=== PATIENT | female | born 1945 ===

== ENCOUNTER 2020-08-07 21:49 | Emergency (ER) | payer MEDICARE, OTHER ==
[~2020-08-07] VITALS: Ht 157.5 cm; Wt 65.2 kg
[2020-08-07 21:50] VITALS: BP 133/60
[2020-08-07] MEDS ORDERED: ONDANSETRON 2MG/ML, 2ML IVPush ONE (22:30)
[2020-08-07] MEDS ORDERED: MORPHINE SULFATE 4 MG/ML, 1ML IVPush PRN (22:30)
[2020-08-07] MEDS ORDERED: ONDANSETRON 2MG/ML, 2ML ONE (22:38)
[2020-08-07] MEDS ORDERED: MORPHINE SULFATE 4 MG/ML, 1ML ONE (22:38)
[2020-08-07 22:57] LABS: BASOPHILS # (AUTO) 0.02 x10^3/uL (0-0.1); BASOPHILS % (AUTO) 0 % (0-1); EOSINOPHILS # (AUTO) 0.13 x10^3/uL (0-0.4); EOSINOPHILS % (AUTO) 1 % (1-7); LYMPHOCYTES # (AUTO) 2.01 x10^3/uL (1-3.4); LYMPHOCYTES % (AUTO) 20 % (22-44); MD NO; MEAN CORPUSCULAR HEMOGLOBIN 30.4 pg (27.0-34.8); MEAN CORPUSCULAR HGB CONC 32.2 g/dL (32.4-35.8); MEAN PLATELET VOLUME 8.3 fL (7.4-10.4); MONOCYTES % (AUTO) 5 % (2-9); NEUTROPHILS # (AUTO) 7.34 x10^3/uL (1.8-6.8); NEUTROPHILS % (AUTO) 73 % (42-75); PLATELET COUNT 205 x10^3/uL (130-400); RED BLOOD COUNT 4.24 x10^6/uL (3.82-5.3); RED CELL DISTRIBUTION WIDTH 14.5 % (9.6-15.2)
[2020-08-07 23:05] LABS: ALBUMIN 3.4 g/dL (3.4-5.0); ANION GAP 7 mmol/L (5-15); CALCIUM 9.6 mg/dL (8.5-10.1); CHLORIDE 109 mmol/L (98-107)
== END 2020-08-08 00:23 | disposition home or self-care (01) ==
LOC: ED 22:37
DX: S50.01XA Contusion of right elbow, initial encounter (principal); M25.561 Pain in right knee; M25.551 Pain in right hip; W01.0XXA Fall on same level from slipping, tripping and stumbling without subsequent striking against object, initial encounter; Y93.89 Activity, other specified; Y92.009 Unspecified place in unspecified non-institutional (private) residence as the place of occurrence of the external cause; Y99.8 Other external cause status
CPT/HCPCS: 36415; 73080; 73502; 73564; 80048; 82040; 85025; 96374; 96375; 99284; J2270; J2405